=== PATIENT | male | born 1995 | race Caucasian/White ===

== ENCOUNTER 2018-08-19 11:39 | Emergency (ER) | payer SELFPAY ==
[~2018-08-19] VITALS: Ht 177.8 cm; Wt 70.0 kg
[2018-08-19 12:57] LABS: HEMATOCRIT 46.5 % (39.0-50.0); HEMOGLOBIN 15.8 g/dl (14.0-18.0); IMMATURE GRANULOCYTES 0.5 % (0.0-5.0); MEAN CELL VOLUME 87.7 fL CALC (80.0-100.0); MEAN CORPUSCULAR HGB 29.8 pG CALC (26.0-32.0); NEUT# 7.86 thou/uL (1.82-7.42); RED BLOOD COUNT 5.3 mill/uL (4.70-6.10); RED CELL DISTRI WIDTH 13.2 % (11.5-15.5)
[2018-08-19 13:14] LABS: URINE BILIRUBIN - DIPSTICK NEGATIVE (NEGATIVE); URINE BLOOD DIPSTICK NEGATIVE (NEGATIVE); URINE COLOR YELLOW; URINE GLUCOSE - DIPSTICK NEGATIVE (NEGATIVE); URINE KETONE NEGATIVE (NEGATIVE); URINE LEUK ESTERASE NEGATIVE (NEGATIVE); URINE NITRITE - DIPSTICK NEGATIVE (Negative); URINE PROTEIN - DIPSTICK NEGATIVE (NEG-TRACE); URINE SPECIFIC GRAVITY 1.015; URINE UROBILINOGEN - DIPSTICK 0.2 E.U./dL (0.2)
[2018-08-19 13:15] LABS: URINE CLARITY CLEAR
[2018-08-19 13:20] LABS: ALBUMIN 4.7 g/dL (3.2-5.0); ALKALINE PHOSPHATASE 99 u/l (38-126); ANION GAP 16 (6-22 (CALC)); BILIRUBIN, TOTAL 0.7 mg/dL (0.0-1.4); BUN 10 mg/dL (9-20); BUN/CREATININE RATIO 12 (12-20 (CALC)); CARBON DIOXIDE 26 mmol/l (22-30); CHLORIDE 103 mmol/l (95-108); CREATININE 0.8 mg/dL (0.7-1.3); GFR > 60 ML/MIN (>=60 (CALC)); GFR FOR AFR.AMER. > 60 ML/MIN (>=60 (CALC)); LIPASE 100 u/l (23-300); POTASSIUM 3.9 mmol/l (3.5-5.1); SGOT/AST 27 u/l (17-59); SODIUM 141 mmol/l (137-146); TOTAL PROTEIN 8.2 g/dL (6.3-8.2)
[2018-08-19] MEDS ORDERED: ONDANSETRON4 MG PO (15:43)
[2018-08-19] MEDS ORDERED: PROTONIX40 M2 PO (15:43)
[2018-08-19] MEDS ORDERED: ULTRAM50 M1 PO (15:43)
[2018-08-19 16:05] VITALS: BP 126/73
== END 2018-08-19 16:19 | disposition home or self-care (01) | DRG 392 ==
LOC: ED 11:39
PROVIDERS: Emergency Medicine
DX: R10.11 Right upper quadrant pain (principal); F41.9 Anxiety disorder, unspecified
CPT/HCPCS: Q9967

== ENCOUNTER 2024-08-23 00:27 | Emergency (ER) | payer MEDICAID ==
[~2024-08-23] VITALS: Ht 177.8 cm; Wt 79.0 kg
[~2024-08-23 00:27] MED LIST: ONDANSETRON4 MG PO; PROTONIX40 M2 PO; ULTRAM50 M1 PO
[2024-08-23] MEDS ORDERED: Diph, Acellular Pertussis, Tet 0.5 ML/VIAL (Tdap) SDV IM ONE (00:45)
[2024-08-23] MEDS ORDERED: oxyCODONE 10MG/APAP 325 MG 1 COMBO TAB PO ONE (00:45)
[2024-08-23] MEDS ORDERED: LIDOCAINE 2% W/ EPINEPHRINE 30 ML MDV STI ONE (00:45)
[2024-08-23] MEDS ORDERED: LIDOCAINE W/ EPINEPHRINE 10 MG/ML INJ STI ONE (01:20)
[2024-08-23 03:04] VITALS: BP 134/74
== END 2024-08-23 03:04 | disposition home or self-care (01) ==
LOC: ED 00:27
DX: S51.812A Laceration without foreign body of left forearm, initial encounter (principal); S61.412A Laceration without foreign body of left hand, initial encounter; W22.09XA Striking against other stationary object, initial encounter; Y92.009 Unspecified place in unspecified non-institutional (private) residence as the place of occurrence of the external cause; Z72.0 Tobacco use

== ENCOUNTER 2024-12-28 19:03 | Emergency (ER) | payer SELFPAY ==
[~2024-12-28] VITALS: Ht 177.8 cm; Wt 77.0 kg
[2024-12-28 19:42] VITALS: BP 115/72
[2024-12-28 19:45] VITALS: BP 113/73
[2024-12-28] MEDS ORDERED: MECLIZINE HCL 25 MG/TAB PO ONE (19:45)
[2024-12-28] MEDS ORDERED: SODIUM CHLORIDE 0.9% 1,000 ML IV ONE (19:45)
[2024-12-28 20:15] VITALS: BP 120/81
[2024-12-28 20:16] LABS: BASO% 0.3 % (0-3); EOS% 3.4 % (0-8); HEMATOCRIT 42.5 % (39.0-50.0); HEMOGLOBIN 14.1 g/dl (14.0-18.0); IMMATURE GRANULOCYTES 0.3 % (0.0-5.0); LYMPH% 26.9 % (15-41); MEAN CELL VOLUME 86.6 fL CALC (80.0-100.0); MEAN CORPUSCULAR HGB 28.7 pG CALC (26.0-32.0); MEAN CORPUSCULAR HGB CONC 33.2 g/dL CAL (32.0-36.0); MONO% 7.7 % (2-13); NEUT# 4.21 thou/uL (1.82-7.42); NEUT% 61.4 % (42-76); RED BLOOD COUNT 4.91 mill/uL (4.70-6.10); RED CELL DISTRI WIDTH 12.4 % (11.5-15.5)
[2024-12-28 20:28] LABS: ALBUMIN 4.5 g/dL (3.2-5.0); BILIRUBIN, TOTAL 0.8 mg/dL (0.2-1.3); POTASSIUM 4.4 mmol/l (3.5-5.1); TOTAL PROTEIN 7.4 g/dL (6.3-8.2)
[2024-12-28 20:30] VITALS: BP 122/76
[2024-12-28 20:45] VITALS: BP 123/85
[2024-12-28 20:59] VITALS: BP 123/85
== END 2024-12-28 20:59 | disposition home or self-care (01) | DRG 153 ==
LOC: ED 19:03
PROVIDERS: Family Medicine
DX: J06.9 Acute upper respiratory infection, unspecified (principal); F41.9 Anxiety disorder, unspecified; Z72.0 Tobacco use; Z20.822 Contact with and (suspected) exposure to COVID-19